=== PATIENT | male | born 1970 | race Caucasian/White ===

== ENCOUNTER 2023-12-25 22:08 | Emergency (ER) | payer BC ==
[~2023-12-25] VITALS: Ht 180.3 cm; Wt 72.7 kg
[2023-12-25 22:46] LABS: HEMATOCRIT 41.5 % (42.0-52.0); HEMOGLOBIN 14.4 g/dl (13.5-17.5); MEAN CORPUSCULAR HEMOGLOBIN 31.7 pg (27.0-33.0); MEAN CORPUSCULAR HGB CONC 34.7 g/dl (32.0-36.5); MEAN CORPUSCULAR VOLUME 91.4 fl (80.0-96.0); PLATELET COUNT, AUTOMATED 229 10^3/uL (150-450); RED BLOOD COUNT 4.54 10^6/uL (4.30-6.10); WHITE BLOOD COUNT 4.9 10^3/uL (4.0-10.0)
[2023-12-25 23:10] LABS: AMPHETAMINES LEVEL URINE NEGATIVE (NEGATIVE); BARBITURATES URINE NEGATIVE (NEGATIVE); BENZODIAZEPINES URINE NEGATIVE (NEGATIVE); COCAINE METABOLITE URINE NEGATIVE (NEGATIVE); METHADONE URINE NEGATIVE (NEGATIVE); OPIATES URINE NEGATIVE (NEGATIVE); PHENCYCLIDINE URINE NEGATIVE (NEGATIVE)
[2023-12-25 23:14] LABS: ALBUMIN 3.9 G/DL (3.2-5.2); ALKALINE PHOSPHATASE 137 U/L (46-116); ALT/SGPT 40 U/L (7.0-40); AST/SGOT 41 U/L (<34); BILIRUBIN,DIRECT < 0.1 MG/DL (<0.4); BILIRUBIN,TOTAL 0.3 MG/DL (0.3-1.2); BLOOD UREA NITROGEN 11 MG/DL (9-23); CALCIUM LEVEL 8.9 MG/DL (8.5-10.1); CARBON DIOXIDE LEVEL 25 MMOL/L (20-31); CHLORIDE LEVEL 104 MMOL/L (98-107); CREATININE FOR GFR 0.53 MG/DL (0.70-1.30); GLOMERULAR FILTRATION RATE > 60.0 (>56); GLUCOSE, FASTING 92 MG/DL (60-100); POTASSIUM SERUM 3.7 MMOL/L (3.5-5.1); SALICYLATE LEVEL < 3.0 MG/DL (<30); SODIUM LEVEL 136 MMOL/L (136-145)
[2023-12-25 23:28] LABS: CANNABINOIDS URINE POSITIVE (NEGATIVE)
[2023-12-26 00:28] LABS: THYROID STIMULATING HORMONE 1.113 uIU/ML (0.55-4.78)
[2023-12-26] MEDS ORDERED: GABA-282 PO (00:42)
[2023-12-26] MEDS ORDERED: METH5TA PO (00:42)
[2023-12-26] MEDS ORDERED: CARB20TAXR PO (00:42)
[2023-12-26] MEDS ORDERED: IBUP1TAB6 PO (00:42)
[2023-12-26] MEDS ORDERED: PALI1TAB3 PO (00:42)
[2023-12-26] MEDS ORDERED: DIAZ10TA2 PO (00:42)
[2023-12-26] MEDS ORDERED: PHEN15TA PO (00:42)
[2023-12-26] MEDS ORDERED: CEPH500T PO (00:42)
[2023-12-26] MEDS ORDERED: ONDA-282 PO (00:42)
[2023-12-26] MEDS ORDERED: AMBI12.52 PO (00:42)
[2023-12-26] MEDS ORDERED: HOME MED LIST COMPLETE! XX SCH (00:45)
[2023-12-26] MEDS ORDERED: IBUPROFEN 600MG TAB PO ONE (03:45)
[2023-12-26 04:05] VITALS: BP 143/74; TEMP 98.5; O2SAT 99
== END 2023-12-26 04:08 | disposition home or self-care (01) ==
LOC: M ED 22:08
DX: F43.0 Acute stress reaction (principal); Z91.040 Latex allergy status